=== PATIENT | male | born 1945 | race African-American/Black ===

== ENCOUNTER 2020-12-02 05:56 | Inpatient (IN) ==
[2020-11-26 11:27] LABS: Basophils % 0.4 % (0.0-0.8); Eosinophils # 0.1 10*3/uL (0.0-0.87); Eosinophils % 1.3 % (0.00-10.9); Hematocrit 42.2 VOL% (42.0-52.0); Hemoglobin 14.3 GM/DL (14.0-18.0); Immature Granulocytes % 0.1 %; Immature Granulocytes Absolute 0.01 #; Lymphocytes # 3.3 10*3/uL (1.4-4.0); Lymphocytes % 44.2 % (21.2-54.2); Mean Corpuscular HGB Conc 33.9 GM/DL (32-36); Mean Corpuscular Volume 96.3 FL (87-102); Mean Platelet Volume 11.4 FL (9.6-12.0); Monocytes % 9.9 % (1.7-12.7); Neutrophils % 44.1 % (38.7-73.9); Platelet Count 174 T/CUMM (130-400); Red Blood Count 4.38 MC/CUMM (3.8-5.5); White Blood Count 7.5 T/CUMM (4-12)
[2020-11-26 12:08] LABS: Albumin 4.3 G/DL (3.4-5.0); Bilirubin,Total 0.7 MG/DL (0.2-1.0); Calcium 9.3 MG/DL (8.5-10.1); Osmolality,Calculated 285.4 MOS/KG (273-304); Potassium 3.7 MMOL/L (3.5-5.1); Total Protein 7.3 G/DL (6.4-8.2)
[2020-11-26 12:21] LABS: Band Neutrophils 1 % (0-10); Eosinophils 1 % (0-10); Lymphocytes 43 % (20-55); Macrocytosis Slight; Platelet Estimate Normal; Segmented Neutrophils 49 % (50-85); Total Cells Counted 100
[2020-12-02] MEDS ORDERED: FAMOTIDINE 20 MG TABLET PO ONE (06:00)
[2020-12-02] MEDS ORDERED: ACETAMINOPHEN 500 MG TABLET PO ONE (06:00)
[2020-12-02] MEDS ORDERED: MIDAZOLAM 2 MG/2 ML VIAL ONE (06:30)
[2020-12-02] MEDS ORDERED: cefTRIAXone 1,000 MG in SYRINGE 1 EACH IV ONE (06:30)
[2020-12-02] MEDS ORDERED: fentaNYL 100 MCG/2 ML VIAL ONE (06:31)
[2020-12-02] MEDS ORDERED: DEXAMETHASONE 4 MG/1 ML VIAL ONE (06:31)
[2020-12-02] MEDS ORDERED: ROPIVACAINE 0.5% 30 ML VIAL ONE ×2 (06:31→11:10)
[2020-12-02] MEDS: LACTATED RINGERS 1,000 ML IV SCH (06:38)
[2020-12-02] MEDS ORDERED: PHENYLEPHRINE DRIP 20 MG/250 ML PREMIX IV ONE (07:46)
[2020-12-02] MEDS ORDERED: HYDROmorphone 2 MG/1 ML VIAL IV PRN ×2 (11:34→12:16)
[2020-12-02] MEDS ORDERED: ONDANSETRON 4 MG/2 ML VIAL IV PRN ×2 (11:34→12:16)
[2020-12-02] MEDS ORDERED: PROMETHAZINE 25 MG/1 ML VIAL IM PRN (11:34)
[2020-12-02] MEDS ORDERED: ACETAMINOPHEN 325 MG TABLET PO PRN (11:34)
[2020-12-02] MEDS ORDERED: SIMETHICONE CHEW 80 MG TABLET PO PRN (11:37)
[2020-12-02] MEDS ORDERED: oxyCODONE/ACETAMINOPHEN 5-325 MG TABLET PO PRN (11:38)
[2020-12-02] MEDS ORDERED: PROMETHAZINE INJ 25 MG in SODIUM CHLORIDE 0.9% 50 ML IV PRN (12:16)
[2020-12-02] MEDS ORDERED: MEPERIDINE 25 MG/1 ML VIAL IV PRN (12:16)
[2020-12-02] MEDS ORDERED: diphenhydrAMINE 50 MG/1 ML VIAL IV PRN (12:16)
[2020-12-02 12:23] LABS: Bilirubin,Urine Negative (Negative); Blood, Urine Small mg/dL (Negative); Glucose,Urine (UA) Negative (Negative); Ketones,Urine Negative (Negative); Nitrite,Urine Negative (Negative); Protein,Urine Negative; RBC,Urine 1 /HPF (0-4); Urine Appearance CLEAR (Clear); Urine Color Straw (Yellow); Urine Specific Gravity 1.009 (1.001-1.035); Urine Urobilinogen < 2.0 EU/DL (0.2-1.0); WBC,Urine 1 /HPF (0-6)
[2020-12-02 12:25] LABS: Basophils % 0.3 % (0.0-0.8); Eosinophils % 0.3 % (0.00-10.9); Hematocrit 41.8 VOL% (42.0-52.0); Immature Granulocytes % 0.5 %; Immature Granulocytes Absolute 0.05 #; Lymphocytes # 1.6 10*3/uL (1.4-4.0); Lymphocytes % 16.1 % (21.2-54.2); Mean Corpuscular HGB Conc 33.5 GM/DL (32-36); Mean Corpuscular Volume 97.7 FL (87-102); Mean Platelet Volume 10.6 FL (9.6-12.0); Monocytes % 5.6 % (1.7-12.7); Neutrophils % 77.2 % (38.7-73.9); Platelet Count 175 T/CUMM (130-400); Red Blood Count 4.28 MC/CUMM (3.8-5.5)
[2020-12-02 12:48] LABS: Calcium 8.9 MG/DL (8.5-10.1); Osmolality,Calculated 281.8 MOS/KG (273-304)
[2020-12-02] MEDS: cefTRIAXone 1,000 MG in SYRINGE 1 EACH IV SCH (13:32)
[2020-12-02] MEDS: SODIUM CHLORIDE 0.9% 1,000 ML IV SCH ×2 (13:43→21:30)
[2020-12-02] MEDS: BIMATOPROST 0.01% OPH SOLN 2.5 ML BOTTLE BOTH EYES SCH (21:30)
[2020-12-03] MEDS: SODIUM CHLORIDE 0.9% 1,000 ML IV SCH ×2 (05:35→13:21)
[2020-12-03 06:30] LABS: Basophils % 0.3 % (0.0-0.8); Eosinophils # 0.1 10*3/uL (0.0-0.87); Eosinophils % 0.8 % (0.00-10.9); Hematocrit 39.2 VOL% (42.0-52.0); Immature Granulocytes % 0.3 %; Immature Granulocytes Absolute 0.03 #; Lymphocytes # 2.5 10*3/uL (1.4-4.0); Lymphocytes % 22.5 % (21.2-54.2); Mean Corpuscular HGB Conc 35.7 GM/DL (32-36); Mean Corpuscular Volume 95.6 FL (87-102); Mean Platelet Volume 10.5 FL (9.6-12.0); Monocytes % 10.7 % (1.7-12.7); Neutrophils % 65.4 % (38.7-73.9); Platelet Count 148 T/CUMM (130-400); Red Cell Distribution Width 12.9 % (9.3-17.3); White Blood Count 11.3 T/CUMM (4-12)
[2020-12-03 06:46] LABS: Calcium 8.5 MG/DL (8.5-10.1); Osmolality,Calculated 277.7 MOS/KG (273-304); Potassium 3.5 MMOL/L (3.5-5.1)
[2020-12-03] MEDS: METOPROLOL SUCCINATE XL 100 MG TABLET PO SCH (10:51)
[2020-12-03] MEDS: POTASSIUM CHLORIDE 20 MEQ TABLET PO SCH (10:51)
[2020-12-03] MEDS: ENALAPRIL 20 MG TABLET PO SCH (10:51)
[2020-12-03] MEDS: hydroCHLOROthiazide 25 MG TABLET PO SCH (10:52)
[2020-12-03] MEDS: ALVIMOPAN 12 MG CAPSULE PO SCH ×2 (10:52→20:25)
[2020-12-03] MEDS: PANTOPRAZOLE 40 MG TABLET PO SCH (10:52)
[2020-12-03] MEDS: cefTRIAXone 1,000 MG in SYRINGE 1 EACH IV SCH (13:14)
[2020-12-03] MEDS: LACTATED RINGERS 1,000 ML IV SCH (13:21)
[2020-12-03] MEDS: BIMATOPROST 0.01% OPH SOLN 2.5 ML BOTTLE BOTH EYES SCH (20:25)
[2020-12-04 06:54] LABS: Basophils % 0.1 % (0.0-0.8); Eosinophils # 0.2 10*3/uL (0.0-0.87); Eosinophils % 1.6 % (0.00-10.9); Hemoglobin 14.1 GM/DL (14.0-18.0); Immature Granulocytes % 0.4 %; Immature Granulocytes Absolute 0.06 #; Lymphocytes # 3.3 10*3/uL (1.4-4.0); Lymphocytes % 24.5 % (21.2-54.2); Mean Corpuscular HGB Conc 34.4 GM/DL (32-36); Mean Corpuscular Volume 96.7 FL (87-102); Mean Platelet Volume 10.4 FL (9.6-12.0); Monocytes % 13.3 % (1.7-12.7); Neutrophils % 60.1 % (38.7-73.9); Platelet Count 159 T/CUMM (130-400); Red Blood Count 4.24 MC/CUMM (3.8-5.5); Red Cell Distribution Width 12.8 % (9.3-17.3); White Blood Count 13.7 T/CUMM (4-12)
[2020-12-04 07:11] LABS: Calcium 9.3 MG/DL (8.5-10.1); Osmolality,Calculated 270.1 MOS/KG (273-304); Potassium 3.6 MMOL/L (3.5-5.1)
[2020-12-04] MEDS: METOPROLOL SUCCINATE XL 100 MG TABLET PO SCH (08:44)
[2020-12-04] MEDS: ENALAPRIL 20 MG TABLET PO SCH (08:44)
[2020-12-04] MEDS: ALVIMOPAN 12 MG CAPSULE PO SCH (08:45)
[2020-12-04] MEDS: PANTOPRAZOLE 40 MG TABLET PO SCH (08:45)
[2020-12-04] MEDS: POTASSIUM CHLORIDE 20 MEQ TABLET PO SCH (08:45)
[2020-12-04] MEDS: hydroCHLOROthiazide 25 MG TABLET PO SCH (08:45)
[2020-12-04] MEDS: cefTRIAXone 1,000 MG in SYRINGE 1 EACH IV SCH (11:06)
[2020-12-04 12:15] VITALS: BP 128/69
== END 2020-12-04 15:25 | disposition home or self-care (01) | DRG 658 ==
LOC: N.OR 05:56 → N.SDSINP 06:02 → N.4E 12:54
PROVIDERS: ADMIT Surgery; ATTEND Surgery